=== PATIENT | female | born 1990 | race Caucasian/White ===

== ENCOUNTER → 2016-12-31 | Outpatient (CLI) | payer OTHER ==
--- NOTE | 2016-12-31 16:07 | DIAGNOSTIC IMAGING REPORT ---
CHEST CT WITHOUT CONTRAST CT DOSE: 495.52 mGy.cm HISTORY: Lung nodules R91.8 TECHNIQUE: Multiaxial CT images of the chest were performed without contrast. COMPARISON: 12/21/2015 FINDINGS: 5 mm nodular density left mid to lower lung. Several smaller lung nodules all which appear stable. No new or interval finding. There are no consolidative infiltrates. Several shotty Nodes considered benign. No significant hilar or mediastinal adenopathy. IMPRESSION: Unchanged study. Stable benign-appearing basilar nodularity. No interval or new interval or progressive process. Electronically signed by: Adrien Del Cid M.D. 12/31/2016 4:05 PM Dictated Date/Time: 12/31/2016 4:02 PM
== END | disposition home or self-care (01) ==
LOC: C.CTS 15:47
PROVIDERS: ATTEND Family Medicine
DX: R91.8 Other nonspecific abnormal finding of lung field (principal)

== ENCOUNTER 2024-08-26 08:35 | Inpatient (IN) ==
--- NOTE | 2024-08-26 08:53 | Emergency Department Note ---
History of Present Illness General Chief complaint: Facial Injury/Pain Stated complaint: L SIDED FACIAL SWELLING Time Seen by Provider: 08/26/24 08:44 History of Present Illness Maximum Pain Intensity: 5 This is a 34-year-old female that presents to the emergency department via private vehicle with complaints of "left-sided facial swelling". The patient began with this around 3 AM today when she awoke. She placed some ice on the area and noted worsening swelling around 8 AM therefore prompting arrival here today. No trauma. No injury. She points to the left upper dentition as a location of what is likely the origin noting an eroded tooth to the gumline with superior tracking edema. She notes it is now near the left eye. Minimal pain. No fevers, chills, nausea or vomiting. She denies any allergies. Otherwise healthy. No pertinent surgeries. Patient denies any chance of . No recent antibiotic use. No trouble breathing or swallowing. Home Medications Medication Instructions Recorded Confirmed Type buprenorphine 2 mg-naloxone 0.5 mg 1 tab sublingual BID 03/14/23 08/26/24 History sublingual tablet Allergies Allergy/AdvReac Type Severity Reaction Status Date / Time No Known Allergies Allergy Verified 08/26/24 11:17 Past Med/Surg History Problem List (Updated 08/26/24 @ 22:12 by Gil Lozano PA-C) Dental infection (Acute) Facial edema (Acute) Cellulitis of face (Acute) Cellulitis and abscess of face Periapical abscess of tooth with fistula Dental abscess Apical abscess Pelvic pain IUD strings lost IUD check up Encounter for IUD insertion Encounter for general counseling and advice on contraceptive management Encounter for annual routine gynecological examination Contusion, hip (Acute) Elbow contusion (Acute) Asthma (Chronic) Lower back pain (Acute) Anxiety Lumbar disc disease Depression Hypokalemia (Acute) Medical History No pertinent past medical history Surgical History No history of previous surgery Family History Mother Hypertension Father Hypertension Denies family history of Ovarian cancer Breast cancer Colorectal cancer Social History Smoking Status: Current every day smoker Tobacco Type: E-cigarettes / Vaping Age Quit Using Tobacco: 28; Second Hand Exposure: No; Do You Dip or Chew Tobacco: No; Tobacco Cessation Education Requested by Patient: No Hx Alcohol Use: No Hx Substance Use: No Preferred Language: Tamazight Communication Ability: Effective Retail Route Supervisor Required: No Beliefs That Will Affect Care: None Current Living Situation: Alone Other Information That Helps Us Care for You: No Feels Safe at Home: Yes Safety Concerns: Feels Safe At This Time Assistive Devices: None Review of Systems A total of 10 systems reviewed and were otherwise negative Physical Exam Vital Signs Vital Signs - 24 hr 08/26/24 08:41 08/26/24 10:05 Temperature 36.4 C L 36.8 C Temperature Source Skin Oral Pulse Rate 94 H Pulse Rate [Left Finger] 71 Pulse Rhythm [Left Finger] Regular Pulse Strength [Left Finger] Normal Respiratory Rate 20 18 Respiratory Effort / Characteristics Non-Labored Spontaneous Non-Labored Spontaneous Respiratory Depth Normal Normal Respiratory Pattern Regular Regular Blood Pressure 164/103 H Blood Pressure [Right Arm] 158/101 H Blood Pressure Mean 123 Blood Pressure Mean [Right Arm] 120 Blood Pressure Position [Right Arm] Sitting Pulse Oximetry 99 98 Oxygen Delivery Method Room Air Room Air Sepsis Recent Fever Within 48 Hours No Sepsis New/Unexplained Change in Mental Status N/A Sepsis Action Taken by Nursing No Action Required VITAL SIGNS - Vital signs and nursing notes were reviewed. Stable and afebrile. GENERAL - 34-year-old female appearing her stated age who is in no acute distress. Communicates well with provider and answers questions appropriately. SKIN -left-sided facial edema noted. HEAD - NC/AT. EYES - PERRL with EOMI bilaterally. EARS - No deformities of external structures noted on gross examination bilaterally. External auditory canals without discharge or otorrhea. Tympanic membranes pearly juarez without retraction or bulging. No fluid or purulent material visualized behind the TM. Handle of malleus, umbo, cone of light, pars tensa/flaccid all easily visualized. NOSE - Midline and without cyanosis. No epistaxis or purulent drainage noted. Septum midline without deviation or septal hematoma noted. MOUTH/OROPHARYNX - Without perioral cyanosis. Buccal mucosa pink and moist and without leukoplakia. Tongue midline with equal elevation of palate bilaterally. No tonsillar hypertrophy, erythema, or exudates noted. Left-sided facial edema. Overall fair dentition. Tooth #13 is with evidence of decay and erosion to the gumline NECK - Neck with FROM. Supple to palpation. L>R lymphadenopathy noted. No nuchal rigidity. LUNGS - Chest wall symmetric without accessory muscle use, intercostals retractions, or central cyanosis. Normal vesicular breath sounds CTA B/L. No wheezes, rales, or rhonchi appreciated. CARDIAC - RRR EXTREMITIES - No clubbing or peripheral cyanosis. +5/5 strength noted in UE/LE bilaterally. NEUROLOGIC - Cranial nerves II through XII grossly intact. PSYCH - A&Ox3 and cooperates fully with examiner. Pt is very pleasant and interacts well with examiner. Course Administered Medications Buprenorphine/Naloxone (Buprenorphine/Naloxone 2/0.5mg Tab) 1 tab SL BID [facility] Stop: 09/25/24 20:59 Last Admin: 08/26/24 21:32 Dose: 1 tab Documented By: BROOKLYN Piperacillin Sod/Tazobactam Sod (Zosyn) 4.5 gm in 100 mls @ 25 mls/hr IV Q8H [facility]; Protocol Stop: 09/05/24 18:59 Last Admin: 08/26/24 19:18 Dose: 25 mls/hr Documented By: BROOKLYN Lactated Ringer's (Lr) 1,000 mls @ 80 mls/hr IV .[id number] [facility] Stop: 09/25/24 13:51 Last Admin: 08/26/24 14:36 Dose: 80 mls/hr Documented By: NAZIA Ketorolac Tromethamine (Ketorolac Tromethamine 15 Mg/Ml Vial) 15 mg IV Q6H PRN PRN Reason: Pain Stop: 08/31/24 13:51 Last Admin: 08/26/24 20:18 Dose: 15 mg Documented By: Admin: 08/26/24 14:39 Dose: 15 mg Documented By: NAZIA Discontinued Medications Acetaminophen (Acetaminophen 500 Mg Tab) 500 mg PO NOW STA Stop: 08/26/24 11:02 Last Admin: 08/26/24 11:05 Dose: 500 mg Documented By: LATONIA Ampicillin Sodium/Sulbactam Sodium (Unasyn) 3,000 mg in 100 mls @ 200 mls/hr IV NOW STA Stop: 08/26/24 09:19 Last Infusion: 08/26/24 09:53 Dose: Infused Documented By: Admin: 08/26/24 09:23 Dose: 200 mls/hr Documented By: MILLY Piperacillin Sod/Tazobactam Sod (Zosyn) 4.5 gm in 100 mls @ 200 mls/hr IV ONE STA Stop: 08/26/24 14:24 Last Infusion: 08/26/24 16:09 Dose: Infused Documented By: Admin: 08/26/24 14:41 Dose: 200 mls/hr Documented By: NAZIA Ioversol (Optiray 320 100ml) 94 ml IV ONCE ONE Stop: 08/26/24 10:06 Last Admin: 08/26/24 10:05 Dose: 94 ml Documented By: NICOLE Medical Decision Making Laboratory Data 08/26/24 09:05 08/26/24 09:05 Lab Results 08/26/24 Range/Units 09:05 WBC 7.65 (4.8-10.8) K/ul RBC 4.44 (4.20-5.40) M/uL Hgb 13.0 (12.0-16.0) g/dl Hct 39.2 (37.0-47.0) % MCV 88.3 (80.0-100.0) fL MCH 29.3 (25.0-34.0) pg MCHC 33.2 (32.0-36.0) g/dL RDW Std Deviation 40.0 (36.4-46.3) fL RDW Coeff of Chin 12.4 (11.5-14.5) % Plt Count 268 (130-400) K/uL MPV 10.3 (9.4-12.4) fL Immature Gran % (Auto) 0.1 % Neut % (Auto) 63.5 % Lymph % (Auto) 25.8 % [place] % (Auto) 9.0 % Eos % (Auto) 1.2 % Baso % (Auto) 0.4 % Neut # (Auto) 4.86 (1.40-6.50) K/uL Lymph # (Auto) 1.97 (1.20-3.40) K/uL [place] # (Auto) 0.69 H (0.11-0.59) K/uL Eos # (Auto) 0.09 (0.00-0.50) K/uL Baso # (Auto) 0.03 (0.00-0.20) K/uL Immature Gran # (Auto) 0.01 (0.01-0.20) K/uL Sodium 137 (136-145) mmol/L Potassium 3.9 (3.5-5.1) mmol/L Chloride 104 (98-107) mmol/L Carbon Dioxide 28 (21-32) mmol/L Anion Gap 5 (3-11) BUN 15 (6-23) mg/dl Creatinine 0.76 (0.6-1.2) mg/dl Est Cr Clr Drug Dosing 119.9 ml/min eGFR 106.70 BUN/Creatinine Ratio 19.7 (10-20) Glucose 93 (70-99(Fasting)) mg/dl Calcium 9.2 (8.6-10.3) mg/dl Total Bilirubin 0.4 (0.2-1.0) mg/dl AST 21 (13-39) U/L ALT 22 (7-52) U/L Alkaline Phosphatase 52 (34-104) U/L Total Protein 7.0 (6.0-8.3) gm/dl Albumin 4.3 (3.4-5.0) gm/dl Globulin 2.7 (2.5-4.0) gm/dl Albumin/Globulin Ratio 1.6 (0.9-2) HCG, Qual Negative (Negative) Imaging Data Radiologist's Impression: Face CT 08/26/24 08:50 CT facial bones w con CLINICAL HISTORY: L sided facial edema, likely dental origin COMPARISON STUDY: No previous studies for comparison. TECHNIQUE: Axial images of the face were obtained following intravenous injection of 94 cc of Optiray 320 IV. Sagittal and coronal reconstructions were viewed. Automated exposure control was utilized for the study. A dose lowering technique was utilized adhering to the principles of ALARA. FINDINGS: Visualized portions of the intracranial contents are unremarkable. The mastoid air cells are clear. The sinuses are clear. Epiglottis is normal. The parotid and submandibular glands are normal. An enlarged left level 1 lymph node on image 218 of 245 measures 1.6 x 1.2 cm. Several additional prominent left- sided cervical lymph nodes are present. There is extensive left facial subcutaneous stranding. This is due to a periapical abscess of the left maxillary second premolar (ADA tooth #13). Associated dental caries are present. Several additional dental caries are noted. There is enhancement within the overlying soft tissues without rim-enhancing fluid collection to suggest abscess. No soft tissue gas is present. IMPRESSION: 1. Extensive left facial inflammation suggestive of cellulitis due to a periapical abscess of the left maxillary second premolar. Enhancement within the adjacent soft tissues without rim-enhancing fluid collection to suggest abscess. 2. Multiple dental caries and several absent teeth. 3. Mildly enlarged left-sided cervical lymph nodes which are likely reactive. ACT 112: Negative or not required by law. Electronically signed by: Yohan Paredes M.D. 08/26/2024 10:28 AM MDM Narrative Patient was seen and evaluated as above in room C01b. Review was performed of triage nursing notes and vital signs. Patient presents to us today for assessment of left-sided facial swelling. This appears to be of dental origin. No evidence of Jose's angina. No evidence of meningitis or encephalitis. IV access with established. Labs were drawn. IV Unasyn was ordered. Labs revealed no leukocytosis or concerning anemia. No emergent metabolic disturbance. hCG negative. CT scan face was obtained. Results as above. Left-sided facial cellulitis noted. This is quite extensive and seems to be rapidly progressing. Hospitalization is indicated at this time. IV antibiotics were ordered. Oral acetaminophen ordered for pain. Case discussed with the hospitalist service. Please refer to further documentation regarding her stay. GCS: 15 In the evaluation and treatment of this patient the following differential diagnoses were entertained: Jose's angina, cellulitis, meningitis, encephalitis, orbital cellulitis, periorbital cellulitis, among others Impression & Plan Cellulitis of face, Facial edema, Dental infection Discharge Plan Visit Data Chief Complaint: Facial Injury/Pain Stated Complaint: L SIDED FACIAL SWELLING ED Provider: Ashvin Espino ED Midlevel Provider: Gil Lozano Discharge Problem: Cellulitis of face, Facial edema, Dental infection Patient Disposition: Admitted As Inpatient Discharge Instructions Interventions: ED Discharge Assessment Last Done: 08/26/24 13:52
[2024-08-26] MEDS: AMPICILLIN/SULBACTAM SOD 3,000 MG/100 ML BAG IV STA (09:23)
[2024-08-26 09:36] LABS: Basophils # (auto) 0.03 K/uL (0.00-0.20); Basophils % (auto) 0.4 %; Eosinophils # (auto) 0.09 K/uL (0.00-0.50); Eosinophils % (auto) 1.2 %; Hematocrit (blood only) 39.2 % (37.0-47.0); Immature Granulocytes # (auto) 0.01 K/uL (0.01-0.20); Immature Granulocytes % (auto) 0.1 %; Lymphocytes # (auto) 1.97 K/uL (1.20-3.40); Lymphocytes % (auto) 25.8 %; Mean Corpuscular Hemoglobin 29.3 pg (25.0-34.0); Mean Corpuscular Hgb Conc 33.2 g/dL (32.0-36.0); Mean Corpuscular Volume 88.3 fL (80.0-100.0); Mean Platelet Volume 10.3 fL (9.4-12.4); Monocytes # (auto) 0.69 K/uL (0.11-0.59); Neutrophils # (auto) 4.86 K/uL (1.40-6.50); Neutrophils % (auto) 63.5 %; Platelet Count 268 K/uL (130-400); RDW Coefficient of Variation 12.4 % (11.5-14.5); Red Blood Count 4.44 M/uL (4.20-5.40); White Blood Count 7.65 K/ul (4.8-10.8)
[2024-08-26 09:51] LABS: Albumin Globulin Ratio 1.6 (0.9-2); Albumin Level 4.3 gm/dl (3.4-5.0); BUN Creatinine Ratio 19.7 (10-20); Bilirubin,Total 0.4 mg/dl (0.2-1.0); Calcium 9.2 mg/dl (8.6-10.3); Creatinine Clr Calc Pharmacy 119.9 ml/min; Globulin 2.7 gm/dl (2.5-4.0); Potassium 3.9 mmol/L (3.5-5.1); Pregnancy Test, Serum Negative (Negative)
[2024-08-26] MEDS: OPTIRAY 320 100ml IV ONE (10:05)
--- NOTE | 2024-08-26 10:30 | CT Scan Report ---
CT facial bones w con CLINICAL HISTORY: L sided facial edema, likely dental origin COMPARISON STUDY: No previous studies for comparison. TECHNIQUE: Axial images of the face were obtained following intravenous injection of 94 cc of Optiray 320 IV. Sagittal and coronal reconstructions were viewed. Automated exposure control was utilized fo r the study. A dose lowering technique was utilized adhering to the principles of ALARA. FINDINGS: Visualized portions of the intracranial contents are unremarkable. The mastoid air cells ar e clear. The sinuses are clear. Epiglottis is normal. The parotid and submandibular glands are normal . An enlarged left level 1 lymph node on image 218 of 245 measures 1.6 x 1.2 cm. Several additional p rominent left-sided cervical lymph nodes are present. There is extensive left facial subcutaneous str anding. This is due to a periapical abscess of the left maxillary second premolar (ADA tooth #13). As sociated dental caries are present. Several additional dental caries are noted. There is enhancement within the overlying soft tissues without rim-enhancing fluid collection to suggest abscess. No soft tissue gas is present. IMPRESSION: 1. Extensive left facial inflammation suggestive of cellulitis due to a periapical abscess of the lef t maxillary second premolar. Enhancement within the adjacent soft tissues without rim-enhancing fluid collection to suggest abscess. 2. Multiple dental caries and several absent teeth. 3. Mildly enlarged left-sided cervical lymph nodes which are likely reactive. ACT 112: Negative or not required by law. Electronically signed by: Yohan Paredes M.D. 08/26/2024 10:28 AM
[2024-08-26] MEDS: ACETAMINOPHEN 500 MG TAB PO STA (11:05)
--- NOTE | 2024-08-26 12:15 | History & Physical Report ---
Date of Service August 26, 2024 Assessment & Plan (1) Anxiety: (2) Depression: (3) Apical abscess: Plan Assessment and plan: Left facial cellulitis: L apical abscess: Oral surgeon consulted, blood cultures pending Received IV ampicillin in ED, continue IV Zosyn Pain management with Toradol Follow-up with dentist NIKKI after DC Hx opiate abuse Sober x 5 years, continue Suboxone twice daily Hx anxiety/depression: Has not been taking medications due to financial reasons Will need to discuss with case management for further resources A total of 45 minutes was spent on chart review/diagnostic testing review/facilitating plan of care/discussion with specialist Full code DVT prophylaxis: Lovenox History of Present Illness Chief Complaint: Left facial swelling Primary Care Provider: Stefani Andrade MD The patient is a 34-year-old female with a past medical history of opioid abusecurrently on daily Suboxone, sober x 5 years, anxiety/depressioncurrently not on medications over the past 2 months due to issues with insurance, who presents to the ED today on 08/26/2024 with complaints of left facial swelling that started today. Patient reports an ongoing issue with cavities in the left side of her mouth but denies any ongoing tooth pain. Reports not following with a dentist for several years due to issues with insurance. She denies any recent fever/chills/nausea/vomiting/diarrhea/chest pain/shortness of breath. She woke up with facial swelling this morning and came to the ER for evaluation. On arrival to the ED, labs are unremarkable Facial CT showed: 1. Extensive left facial inflammation suggestive of cellulitis due to a periapical abscess of the left maxillary second premolar. Enhancement within the adjacent soft tissues without rim-enhancing fluid collection to suggest abscess. 2. Multiple dental caries and several absent teeth. 3. Mildly enlarged left-sided cervical lymph nodes which are likely reactive. The patient was given IV ampicillin in the ED and will be admitted for further IV antibiotics Allergies Allergy/AdvReac Type Severity Reaction Status Date / Time No Known Allergies Allergy Verified 08/26/24 11:17 Home Medications Medication Instructions Recorded Confirmed Type buprenorphine 2 mg-naloxone 0.5 mg 1 tab sublingual BID 03/14/23 08/26/24 History sublingual tablet Past Med/Surg History Problem List (Updated 08/26/24 @ 22:12 by Gil Lozano PA-C) Dental infection (Acute) Facial edema (Acute) Cellulitis of face (Acute) Cellulitis and abscess of face Periapical abscess of tooth with fistula Dental abscess Apical abscess Pelvic pain IUD strings lost IUD check up Encounter for IUD insertion Encounter for general counseling and advice on contraceptive management Encounter for annual routine gynecological examination Contusion, hip (Acute) Elbow contusion (Acute) Asthma (Chronic) Lower back pain (Acute) Anxiety Lumbar disc disease Depression Hypokalemia (Acute) Medical History No pertinent past medical history Surgical History No history of previous surgery Family History Mother Hypertension Father Hypertension Denies family history of Ovarian cancer Breast cancer Colorectal cancer Social History Smoking Status: Current every day smoker Tobacco Type: E-cigarettes / Vaping Age Quit Using Tobacco: 28; Second Hand Exposure: No; Do You Dip or Chew Tobacco: No; Tobacco Cessation Education Requested by Patient: No Hx Alcohol Use: No Hx Substance Use: No Preferred Language: Luxembourgish Communication Ability: Effective Radio Frequency Technician Required: No Beliefs That Will Affect Care: None Current Living Situation: Alone Other Information That Helps Us Care for You: No Feels Safe at Home: Yes Safety Concerns: Feels Safe At This Time Assistive Devices: None Review of Systems Review of Systems: All systems reviewed & are unremarkable except as noted in HPI & below Physical Exam Constitutional: WD/WN, vitals as above ENMT: external ear and nose normal, oropharynx normal (Left-sided facial swelling extending up to the left eye, no S/S airway comp) Mouth: + dentition abnormality and + dental caries Cardiovascular: RRR, no murmur, no edema Gastrointestinal (Abdomen): normal bowel sounds, soft, nontender, no hepatosplenomegaly Musculoskeletal: no cyanosis or clubbing, extremities motor strength 5/5 Skin: no rashes, warm and dry Neurologic: patellar DTR's 2+ bilat, sensation intact Psychiatric: A+Ox3, euthymic affect Lymphatic: + cervical lymphadenopathy Results & Data Results & Data Vital Signs (Past 12 Hours) Vital Signs Temp Pulse Pulse Resp BP BP Pulse Ox 08/26/24 10: 36.8 C 71 18 158/101 H 98 08/26/24 08:41 36.4 C L 94 H 20 164/103 H 99 O2 Del Method 08/26/24 10:05 Room Air 08/26/24 08:41 Room Air Diagnostic Findings Laboratory Results WBC 7.65 K/ul (4.8-10.8) 08/26/24 09:05 RBC 4.44 M/uL (4.20-5.40) 08/26/24 09:05 Hgb 13.0 g/dl (12.0-16.0) 08/26/24 09:05 Hct 39.2 % (37.0-47.0) 08/26/24 09:05 MCV 88.3 fL (80.0-100.0) 08/26/24 09:05 MCH 29.3 pg (25.0-34.0) 08/26/24 09:05 MCHC 33.2 g/dL (32.0-36.0) 08/26/24 09:05 RDW Std Deviation 40.0 fL (36.4-46.3) 08/26/24 09:05 RDW Coeff of Chin 12.4 % (11.5-14.5) 08/26/24 09:05 Plt Count 268 K/uL (130-400) 08/26/24 09:05 MPV 10.3 fL (9.4-12.4) 08/26/24 09:05 Immature Gran % (Auto) 0.1 % 08/26/24 09:05 Neut % (Auto) 63.5 % 08/26/24 09:05 Lymph % (Auto) 25.8 % 08/26/24 09:05 [place] % (Auto) 9.0 % 08/26/24 09:05 Eos % (Auto) 1.2 % 08/26/24 09:05 Baso % (Auto) 0.4 % 08/26/24 09:05 Neut # (Auto) 4.86 K/uL (1.40-6.50) 08/26/24 09:05 Lymph # (Auto) 1.97 K/uL (1.20-3.40) 08/26/24 09:05 [place] # (Auto) 0.69 K/uL (0.11-0.59) H 08/26/24 09:05 Eos # (Auto) 0.09 K/uL (0.00-0.50) 08/26/24 09:05 Baso # (Auto) 0.03 K/uL (0.00-0.20) 08/26/24 09:05 Immature Gran # (Auto) 0.01 K/uL (0.01-0.20) 08/26/24 09:05 Sodium 137 mmol/L (136-145) 08/26/24 09:05 Potassium 3.9 mmol/L (3.5-5.1) 08/26/24 09:05 Chloride 104 mmol/L (98-107) 08/26/24 09:05 Carbon Dioxide 28 mmol/L (21-32) 08/26/24 09:05 Anion Gap 5 (3-11) 08/26/24 09:05 BUN 15 mg/dl (6-23) 08/26/24 09:05 Creatinine 0.76 mg/dl (0.6-1.2) 08/26/24 09:05 Est Cr Clr Drug Dosing 119.9 ml/min 08/26/24 09:05 eGFR 106.70 08/26/24 09:05 BUN/Creatinine Ratio 19.7 (10-20) 08/26/24 09:05 Glucose 93 mg/dl (70-99(Fasting)) 08/26/24 09:05 Calcium 9.2 mg/dl (8.6-10.3) 08/26/24 09:05 Total Bilirubin 0.4 mg/dl (0.2-1.0) 08/26/24 09:05 AST 21 U/L (13-39) 08/26/24 09:05 ALT 22 U/L (7-52) 08/26/24 09:05 Alkaline Phosphatase 52 U/L (34-104) 08/26/24 09:05 Total Protein 7.0 gm/dl (6.0-8.3) 08/26/24 09:05 Albumin 4.3 gm/dl (3.4-5.0) 08/26/24 09:05 Globulin 2.7 gm/dl (2.5-4.0) 08/26/24 09:05 Albumin/Globulin Ratio 1.6 (0.9-2) 08/26/24 09:05 HCG, Qual Negative (Negative) 08/26/24 09:[address] 08/26/24 08:50 CT facial bones w con CLINICAL HISTORY: L sided facial edema, likely dental origin COMPARISON STUDY: No previous studies for comparison. TECHNIQUE: Axial images of the face were obtained following intravenous injection of 94 cc of Optiray 320 IV. Sagittal and coronal reconstructions were viewed. Automated exposure control was utilized for the study. A dose lowering technique was utilized adhering to the principles of ALARA. FINDINGS: Visualized portions of the intracranial contents are unremarkable. The mastoid air cells are clear. The sinuses are clear. Epiglottis is normal. The parotid and submandibular glands are normal. An enlarged left level 1 lymph node on image 218 of 245 measures 1.6 x 1.2 cm. Several additional prominent left- sided cervical lymph nodes are present. There is extensive left facial subcutaneous stranding. This is due to a periapical abscess of the left maxillary second premolar (ADA tooth #13). Associated dental caries are present. Several additional dental caries are noted. There is enhancement within the overlying soft tissues without rim-enhancing fluid collection to suggest abscess. No soft tissue gas is present. IMPRESSION: 1. Extensive left facial inflammation suggestive of cellulitis due to a periapical abscess of the left maxillary second premolar. Enhancement within the adjacent soft tissues without rim-enhancing fluid collection to suggest abscess. 2. Multiple dental caries and several absent teeth. 3. Mildly enlarged left-sided cervical lymph nodes which are likely reactive. ACT 112: Negative or not required by law. Electronically signed by: Yohan Paredes M.D. 08/26/2024 10:28 AM Code Status & VTE Plan VTE Prophylaxis Plan VTE Prophylaxis will be ordered: No Supervising Physician Co-Signing Physician Notes Attending Addendum: Case reviewed with the advanced practitioner. I have personally performed a history and physical examination on the patient. I have reviewed the advanced practitioner's documentation on the date of service referenced in note, and I agree with, and take responsibility for the plan of care. please refer to her notes for full details patient seen and examined, records reviewed by myself as well on exam, patient seen resting in bed, not in distress left side of the face still painful no problems with swallowing, breathing no other symptoms VS noted and reviewed oriented x3, not in distress, speaks in sentences with no effort nor accessory muscle use face: moderate edema, mild edema L side of the face normal rate, regular rhythm, no murmurs clear breath sounds bilaterally non distended, soft, nontender no bipedal edema, erythema, warmth no neuro deficits all labs, imaging noted and reviewed ASSESSMENT AND PLAN> LEFT FACIAL CELLULITIS, PERIAPICAL ABSCESS ff up blood cultures for tooth extraction tomorrow by Dr. Colindres other diagnoses and plan of care as per advanced practitioner's notes Tiago Olsen MD
--- NOTE | 2024-08-26 12:47 | Oral/Maxillofacial Consult ---
Date of Consultation August 26, 2024 Assessment & Plan (1) Apical abscess: (2) Cellulitis and abscess of face: (3) Dental abscess: (4) Periapical abscess of tooth with fistula: History of Present Illness History of Present Illness Oral Maxillofacial Surgery Exam Present Complaint: Acute left periorbital and infraorbital swelling with mucobuccal infection. I have pain/swelling/drainage from my infected upper left teeth. Symptoms have been ongoing for a while with mild pain but intense pain and swelling started early this morning. Pain and left side facial swelling Oral Exam: Finding-- Acute left side left infraorbital and mucobuccal swelling, carious teeth,# 13 and # 1 and 29 with tender gingival tissue with deep pocket formation. Teeth are carious and fractured causing the acute facial left side infection with localized swelling in the mucobuccal area of upper right/lower right ,removal is clinical indicated. Imaging: CT facial bones w con CLINICAL HISTORY: L sided facial edema, likely dental origin COMPARISON STUDY: No previous studies for comparison. TECHNIQUE: Axial images of the face were obtained following intravenous injection of 94 cc of Optiray 320 IV. Sagittal and coronal reconstructions were viewed. Automated exposure control was utilized for the study. A dose lowering technique was utilized adhering to the principles of ALARA. FINDINGS: Visualized portions of the intracranial contents are unremarkable. The mastoid air cells are clear. The sinuses are clear. Epiglottis is normal. The parotid and submandibular glands are normal. An enlarged left level 1 lymph node on image 218 of 245 measures 1.6 x 1.2 cm. Several additional prominent left- sided cervical lymph nodes are present. There is extensive left facial subcutaneous stranding. This is due to a periapical abscess of the left maxillary second premolar (ADA tooth #13). Associated dental caries are present. Several additional dental caries are noted. There is enhancement within the overlying soft tissues without rim-enhancing fluid collection to suggest abscess. No soft tissue gas is present. IMPRESSION: 1. Extensive left facial inflammation suggestive of cellulitis due to a periapical abscess of the left maxillary second premolar. Enhancement within the adjacent soft tissues without rim-enhancing fluid collection to suggest abscess. 2. Multiple dental caries and several absent teeth. 3. Mildly enlarged left-sided cervical lymph nodes which are likely reactive. Soft tissue: The left cheek is swollen from a acutely abscessed # 13 . Localized inflammation # 1 and # 29 area The floor of the mouth, tongue, hard/soft palate, posterior pharyngeal area all with in normal limits, no pathology or abnormal findings noted. Oral Care: Overall oral care is fair Occlusion: Class I missing teeth TMJ exam: No pop, clicking, pain, good ROM, No history of TMJ injury or dysfunction Periodontal exam: Inflammatory gingival tissue with early evidence of periodontal pathology. Head/Neck exam: Neck is supple, FROM, Able to extend and flex neck w/o difficulty, no masses, no abnormalities, no airway issues Treatment Plan: IV antibiotics then plan I&D with extractions in OR Aug 27 in the AM Set up with general anesthesia in hospital tomorrow AM due to complexity of the procedure I reviewed the treatment plan and consent with the patient Understanding was expressed. Time was given for questions regarding the surgery, risks and post op care. Discussed alternative to treatment--procedure as planned, Do not do surgery The following teeth are decayed and fractured and removal is indicated NIKKI: I&D left side with removal of infected root # 13 Removal of # 1 and # 29 to tamara with the localized infection which is a risk of developing acute facial infection Risks discussed: Bleeding,Pain,swelling,infection, dry socket, delayed healing, nerve injury to face,lips,tongue,chin area which could be permanent (rare). TMJ, jaw stiffness, change in bite (rare), ear pain (referred). Sinus problems like fistula or infection. Need to leave a small root fragment in place to avoid injury to nerve or sinus. Relationship of teeth to nerve/sinus and risk of jaw fracture. Home care reviewed: Will need to establish with a local dentist for ongoing care tooth brushing, rinsing, follow up care with Dr Colindres. diet=[id number] dental. Discussed activity level, driving/work while on Rx pain Meds. Surgery to be set up with in tomorrow AM for I&D with =extraction of # 1,13 and 29 Allergies Allergy/AdvReac Type Severity Reaction Status Date / Time No Known Allergies Allergy Verified 08/26/24 11:17 Home Medications Medication Instructions Recorded Confirmed Type buprenorphine 2 mg-naloxone 0.5 mg 1 tab sublingual BID 03/14/23 08/26/24 H istory sublingual tablet Patient History Medical History No pertinent past medical history Surgical History No history of previous surgery Family History Mother Hypertension Father Hypertension Denies family history of Ovarian cancer Breast cancer Colorectal cancer Social History Smoking Status: Current every day smoker Tobacco Type: Cigarettes Age Quit Using Tobacco: 28; Cigarettes Per Day: pt was a social smoker; Do You Dip or Chew Tobacco: No; Hx Alcohol Use: Yes Hx Substance Use: No Preferred Language: Haitian Feels Safe at Home: Yes Results & Data Vital Signs (Past 12 Hours) Vital Signs Temp Pulse Pulse Resp BP BP Pulse Ox 08/26/24 10:05 36.8 C 71 18 158/101 H 98 08/26/24 08:41 36.4 C L 94 H 20 164/103 H 99 O2 Del Method 08/26/24 10:05 Room Air 08/26/24 08:41 Room Air PG Care Time/CCT Total # of Minutes Spent Total Time Spent with Patient: Total time spent is greater than 50% in coordination of care (as documented) at patient's floor/unit and/or counseling patient: Coding Level of Care Code 84085 OFFICE CONSULT LVL Diagnoses Apical abscess K04.7 Cellulitis and abscess of face L03.211; L02.01 Dental abscess K04.7 Periapical abscess of tooth with fistula K04.6
--- OUTSIDE RECORDS SUMMARY | 2024-08-26 13:39 | External Medical Summary | Summary of Care ---
Author Name Unknown Organization [facility] Address [address] [place] [address] Phone [phone] Care Team Providers Care System Support Administrator Name Role Phone Swapna Villalpando MD Primary Care Provid er Reason for Visit * Reason Comments eRx-Medication Refill Encounter Details Date Type Department Care Team (Late st Contact Info) Description 03/20/2024 Refill [facility] [address] [place] [address] Swapna Villalpando MD [address], [place] [id number] Anxiety Allergies No known active allergiesdocumented as of this encounter (statuses as of 03/22/2024) Medications Medication Sig Dispensed Refills Start Date End Date Status traZODone HCl 50 MG Oral Tablet (Desyrel) Take 1 Tablet by mouth at bedtime. 0 Active Buprenorphine HCl-Naloxone HCl 2-0.5 MG Sublingual Tablet Sublingual (Suboxone) place 2 tablets under the tongue and dissolve once daily 0 04/23/2022 Active Levonorgestrel 19.5 MG Intrauterine Intrauterine Device (Kyleena) Insert 1 Each into uterus. 0 Active Omeprazole 20 MG Oral Capsule Delayed Release (PriLOSEC) Take 1 Capsule by mouth in the morning. 1 hour before the first meal of the day. 90 Capsule 3 08/17/2023 Active methylPREDNISolon e 4 MG Oral Tablet Therapy Pack (Medrol Dosepack)Indicati ons:Lumbar radiculopathy,Bul ging lumbar disc follow package directions 21 Tablet 0 10/19/2023 Active Meloxicam 7.5 MG Oral Tablet (Mobic)Indication s:Lumbar radiculopathy,Bul ging lumbar disc,Sciatica of right side Take 1-2 tabs daily for pain. 60 Tablet 5 10/19/2023 Active Cyclobenzaprine HCl 10 MG Oral Tablet (Flexeril)Indicat ions:Lumbar radiculopathy,Bul ging lumbar disc,Sciatica of right side Take 1 Tablet by mouth 3 times a day as needed for Muscle spasms. 60 Tablet 3 10/19/2023 Active Lisinopril 5 MG Oral Tablet (Prinivil)Indicat ions:HTN, goal below 140/90 Take 1 Tablet by mouth daily. 90 Tablet 3 10/19/2023 Active Phentermine HCl 37.5 MG Oral CapsuleIndication s:Class 2 obesity with body mass index (BMI) of 35 to 39.9 without comorbidity Take 1 Capsule by mouth in the morning. Take for 12 weeks then stop for at least 1 month. Call for further refills.. 84 Capsule 0 10/19/2023 Active Citalopram Hydrobromide 40 MG Oral Tablet (CeleXA)Indicatio ns:Anxiety TAKE 1 TABLET BY MOUTH EVERY DAY IN THE MORNING 90 Tablet 1 03/22/2024 Active buPROPion HCl ER (XL) 150 MG Oral Tablet Extended Release 24 Hour (Wellbutrin XL)Indications:Ob esity, Class II, BMI 35-39.9, isolated (see actual BMI),Anxiety TAKE 2 TABLETS BY MOUTH EVERY MORNING 180 Tablet 1 09/07/2023 4 Discontinued Citalopram Hydrobromide 40 MG Oral Tablet (CeleXA)Indicatio ns:Anxiety Take 1 Tablet by mouth in the morning. 90 Tablet 1 09/07/2023 4 Discontinued documented as of this encounter (statuses as of 03/22/2024) Active Problems Problem Noted Date Diagnosed Date HTN, goal below 140/90 04/28/2023 Sciatica of right side 09/30/2022 Vapes nicotine containing substance 09/09/2022 Class 2 obesity with body ma ss index (BMI) of 35 to 39.9 without comorbidity 12/01/2017 Overview: bmi= 36.89 12/01/17 Sleep disturbance 12/01/2017 Encounter for monitoring Suboxone maintenance th freddypy 12/01/2017 Opioid dependence on mainten ance agonist therapy, no symptoms 12/01/2017 Anxiety Overview: psychiatry- [facility]- Dr Sylvester- poor response to buspar, on vistaril documented as of this encounter (statuses as of 03/22/2024) Immunizations Name Administration Dates Next Due DTaP Dipth/Tet/Acell Pertussis (Infanrix), Peds 08/07/1997,09/13/1993,1992,09/04,1992 HIB PRP-T, 4 dose (ActHib) 06/11/1993,1992 ,1992 HPV Vaccine, 4-Valent 02/23/2008,10/25/2007,01/2007 Hepatitis B, 0-19 yrs 04/30/1994,06/11/1993,02/21 MMR - Measles/Mumps/Rubella Vaccine 08/07/1997,0 06/11/1993 Meningococcal Conjugate Vacc ine (Menactra/Menveo) 08/25/2007 OPV - Polio Virus Vaccine (Oral) 997,09/13/1993,1992,05/23 Seasonal Influenza, Split, I IV3, No Preserve, Inj 08/31/2012 TDAP (age 10 and older)(Boostrix) 01/13/2022,01/2007 Varicella Vaccine (Chicken Pox) 08/25/2007,06/30 documented as of this encounter Social History Tobacco Use Types Packs/Day Years Used Date Smoking Tobacco: Some Days Cigarettes 0.1 9 Passive Smoke Exposure: Past Smokeless Tobacco: Never Comments:began at age 18 Alcohol Use Standard Drinks/Week Comments No 0 (1 standard drink = 0.6 oz pur e alcohol) none PHQ-2 Answer Date Recorded PHQ Adult Total Score 0 05/21/2022 Hunger Vital Sign Answer Date Recorded Within the past 12 months, y ou worried that your food would run out before you got the money to buy more. Never true 03/14/20 23 Within the past 12 months, t he food you bought just didn't last and you didn't have money to get more. Never true 03/14/2023 Sex and Gender Information Value Date Recorded Sex Assigned at Female 04/22/2022 5:12 PM EDT Gender Identity Female 04/22/2022 5:12 PM EDT Sexual Orientation Straight 04/22/2022 5: 12 PM EDT Job Start Date Occupation Industry Not on file Not on file Not on file documented as of this encounter Miscellaneous Notes * Telephone Encounter - Marlyn Lorenz RPh - 03/22/2024 7:53 AM EDTSigned Prescriptions: Disp Refills Citalopram Hydrobromide 40 MG Oral Tablet *90 Tab*1 Sig: TAKE 1 TABLET BY MOUTH EVERY DAY IN THE MORNINGAuthorizing Provider: SWAPNA VILLALPANDO User: MARLYN LORENZ documented in this encounter Plan of Treatment Health Maintenance Due Date Last Done Comments Pneumococcal Vaccine: Pediatrics (0 to 5 Years) and At-Risk Patients (6 to 64 Years) (1 of 2 - PCV) 1998 HIV Screening 2007 Hepatitis C Screening 2010 Pap Smear 01/21/2019 01/22/2016, 12/21/2014 Cervical Cancer Screening 2022 HPV/Co-Test 2022 Depression Screening 05/21/2023 05/21/2022, 12/01/19 18 COVID-19 Vaccine ( - 2022- season) 2023 GFR 05/06/2024 05/06/2023, 04/23/2022 Influenza Vaccine (FLU shot) (Season Ended) 2024 08/31/2012, 08/31/2012 Albumin/Creatinine Ratio 05/06/2026 05/06/2023 DTaP,Tdap,and Td Vaccines (9 - Td or Tdap) 01/13/2032 01/13/2022, 02/03/2019, 08/25/2007, Additional history exists Hepatitis B Completed 04/30/1994, 05/24, 1992 MENINGOCOCCAL (MENACTRA/MENVEO) Aged Out 08/25/2007, 08/25/2007 No longer eligibl e based on patient's age to complete this topic GARDASIL-HPV IMMUNIZATION SERIES Completed 02/23/2008, 10/25/2007, 08/25/2007 documented as of this encounter Medical Devices Not on filedocumented as of this encounter Visit Diagnoses Diagnosis Anxiety Anxiety state, unspecified documented in this encounter Care Teams System Support Administrator Relationship Specialty Start Date End Date Swapna Villalpando MD [address] [place] [address] PCP - General Family Medicine 12/09/21 documented as of this encounter
--- OUTSIDE RECORDS SUMMARY | 2024-08-26 13:39 | External Medical Summary | Summary of Care ---
Author Name Unknown Organization [facility] Address [address] [place] [address] Phone [phone] Care Team Providers Care Senior Linux Systems Engineer Name Role Phone Stefani Andrade MD Primary Care Provid er Reason for Visit * Reason Onset Date Comments Appointment 07/27/2024 Psychiatry refer ral Encounter Details Date Type Department Care Team ([facility] st Contact Info) Description 07/27/2024 Telephone [facility] [address] [place] [address] Stefani Andrade MD [address] [place] [address] Appointment (Psychiatry referral) Allergies No known active allergiesdocumented as of this encounter (statuses as of 07/29/2024) Medications Medication Sig Dispensed Refills Start Date End Date Status traZODone HCl 50 MG Oral Tablet (Desyrel) Take 1 Tablet by mouth at bedtime. Active Buprenorphine HCl-Naloxone HCl 2-0.5 MG Sublingual Tablet Sublingual (Suboxone) place 2 tablets under the tongue and dissolve once daily 04/23/2022 Active Levonorgestrel 19.5 MG Intrauterine Intrauterine Device (Kyleena) Insert 1 Each into uterus. Active methylPREDNISolone 4 MG Oral Tablet Therapy Pack (Medrol Dosepack)Indications :Lumbar radiculopathy,Bulgin g lumbar disc follow package directions 21 Tablet 10/19/2023 Active Meloxicam 7.5 MG Oral Tablet (Mobic)Indications:L umbar radiculopathy,Bulgin g lumbar disc,Sciatica of right side Take 1-2 tabs daily for pain. 60 Tablet 5 10/19/2023 Active Cyclobenzaprine HCl 10 MG Oral Tablet (Flexeril)Indication s:Lumbar radiculopathy,Bulgin g lumbar disc,Sciatica of right side Take 1 Tablet by mouth 3 times a day as needed for Muscle spasms. 60 Tablet 3 10/19/2023 Active Lisinopril 5 MG Oral Tablet (Prinivil)Indication s:HTN, goal below 140/90 Take 1 Tablet by mouth daily. 90 Tablet 3 10/19/2023 Active Phentermine HCl 37.5 MG Oral CapsuleIndications:C lass 2 obesity with body mass index (BMI) of 35 to 39.9 without comorbidity Take 1 Capsule by mouth in the morning. Take for 12 weeks then stop for at least 1 month. Call for further refills.. 84 Capsule 10/19/2023 Active Omeprazole 20 MG Oral Capsule Delayed Release (PriLOSEC) Take 1 Capsule by mouth in the morning. 1 hour before the first meal of the day. 30 Capsule 5 03/24/2024 Active buPROPion HCl ER (XL) 150 MG Oral Tablet Extended Release 24 Hour (Wellbutrin XL)Indications:Obesi ty, Class II, BMI 35-39.9, isolated (see actual BMI),Anxiety,Major depressive disorder with current active episode, unspecified depression episode severity, unspecified whether recurrent TAKE 2 TABLETS BY MOUTH EVERY MORNING 180 Tablet 1 07/27/2024 Active Citalopram Hydrobromide 40 MG Oral Tablet (CeleXA)Indications: Anxiety,Major depressive disorder with current active episode, unspecified depression episode severity, unspecified whether recurrent Take 1 Tablet by mouth in the morning. 90 Tablet 1 07/27/2024 Active Ziprasidone HCl 40 MG Oral Capsule (Geodon)Indications: Major depressive disorder with current active episode, unspecified depression episode severity, unspecified whether recurrent,Bipolar 2 disorder (HCC) Take 1 Capsule by mouth 2 times a day with morning and evening meals. 60 Capsule 1 07/27/2024 Active documented as of this encounter (statuses as of 07/29/2024) Active Problems Problem Noted Date Diagnosed Date Bipolar 2 disorder 07/27/2024 HTN, goal below 140/90 04/28/2023 Sciatica of right side 09/30/2022 Vapes nicotine containing substance 09/09/2022 Class 2 obesity with body ma ss index (BMI) of 35 to 39.9 without comorbidity 12/01/2017 Overview: bmi= 36.89 12/01/17 Sleep disturbance 12/01/2017 Encounter for monitoring Suboxone maintenance th erapy 12/01/2017 Opioid dependence on mainten ance agonist therapy, no symptoms 12/01/2017 Anxiety Overview: psychiatry- [facility]- Dr Sylvester- poor response to buspar, on vistaril documented as of this encounter (statuses as of 07/29/2024) Immunizations Name Administration Dates Next Due DTaP Dipth/Tet/Acell Pertussis (Infanrix), Peds 08/07/1997,09/13/1993,1992,09/04,1992 HIB PRP-T, 4 Dose, PF, IM (H iberix, ActHib) 06/11/1993,1992,1992 HPV Vaccine, 4-Valent 02/23/2008,10/25/2007,01/2007 Hepatitis B, 0-19 yrs 04/30/1994,06/11/1993,02/21 MMR - Measles/Mumps/Rubella Vaccine 08/07/1997,0 06/11/1993 Meningococcal Conjugate Vacc ine (Menactra/Menveo) 08/25/2007 OPV - Polio Virus Vaccine (Oral) 997,09/13/1993,1992,05/23 Seasonal Influenza, Trivalen t, (IIV3), PF, (Fluzone) 08/31/2012 TDAP (age 10 and older)(Boostrix) 01/13/2022,01/2007 [...] money to get more. Never true 03/14/2023 Utilities Answer Date Recorded Do you have trouble paying y our heating, water, or electric bill? (Adult - for ages 18 years and over) Not on file 05/10/2024 Is your family able to pay t he heat, water, or electric bill? (Household - for ages 0-17 years) Not on file 05/10/2024 Does your family have access to good internet? (Household - for ages 0-17 years) Not on file 05/10/2024 Social Connections Answer Date Recorded How often do you feel lonely or isolated from those around you? (Adult - for ages 18 years and over) Not on file 05/10/2024 Sex and Gender Information Value Date Recorded Sex Assigned at Female 04/22/2022 5:12 PM EDT Gender Identity Female 04/22/2022 5:12 PM EDT Sexual Orientation Straight 04/22/2022 5: 12 PM EDT Job Start Date Occupation Industry Not on file Not on file Not on file documented as of this encounter Miscellaneous Notes * Telephone Encounter - Isabelle Willard OSA - 07/29/2024 9:19 AM EDT LMOM. Letter sent. 07/29/2024 * Telephone Encounter - Isabelle Willard OSA - 07/27/2024 1:27 PM EDT LMOM to schedule Psychiatry referral. 07/27/2024 documented in this encounter Plan of Treatment Health Maintenance Due Date Last Done Comments Pneumococcal Vaccine: Pediatrics (0 to 5 Years) and At-Risk Patients (6 to 64 Years) (1 of 2 - PCV) 1998 HIV Screening 2007 Hepatitis C Screening 2010 Pap Smear 01/21/2019 01/22/2016, 12/21/2014 Cervical Cancer Screening 2022 HPV/Co-Test 2022 GFR 05/06/2024 05/06/2023, 04/23/2022 COVID-19 Vaccine ( season) 2024 Influenza Vaccine (FLU shot) (#1) 2024 08/31/2012, 08/31/2012 Albumin/Creatinine Ratio 05/06/2026 05/06/2023 DTap/Tdap Vaccines (9 - Td or Tdap) 01/13/2032 01/13/2022, 02/03/2019, 08/25/2007, Additional history exists Hepatitis B Vaccine Completed 04/30/1994, 06/11/1993, 1992 MENINGOCOCCAL (MENACTRA/MENVEO) Aged Out 08/25/2007, 08/25/2007 No longer eligibl e based on patient's age to complete this topic HPV (Gardasil) Vaccine Completed 8, 10/25/2007, 08/25/2007 documented as of this encounter Medical Devices Not on filedocumented as of this encounter Care Teams Senior Linux Systems Engineer Relationship Specialty Start Date End Date Stefani Andrade MD [address] [place] [address] PCP - General Family Medicine 12/09/21 documented as of this encounter
--- OUTSIDE RECORDS SUMMARY | 2024-08-26 13:39 | External Medical Summary | Summary of Care ---
Author Name Unknown Organization [facility] Address [address] [place] [address] Phone [phone] Care Team Providers Care Collections Manager Name Role Phone Stefani Andrade MD Primary Care Provid er Reason for Visit * Reason Onset Date Comments Appointment 07/27/2024 Psychiatry refer ral Encounter Details Date Type Department Care Team ([facility] st Contact Info) Description 07/27/2024 Telephone [facility] [address] [place] [address] Stefani Andrade MD [address] [place] [address] Appointment (Psychiatry referral) Allergies No known active allergiesdocumented as of this encounter (statuses as of 07/27/2024) Medications Medication Sig Dispensed Refills Start Date [...] as of this encounter (statuses as of 07/27/2024) Active Problems Problem Noted Date Diagnosed Date [...] as of this encounter (statuses as of 07/27/2024) Immunizations Name Administration Dates Next Due DTaP [...] 2022 Depression Screening 05/21/2023 05/21/2022, 12/01/19 18 GFR 05/06/2024 05/06/2023, 04/23/2022 COVID-19 Vaccine ( [...] filedocumented as of this encounter Care Teams Collections Manager Relationship Specialty Start Date End Date Stefani Andrade MD [address], [place] [phone] PCP - General Family Medicine 12/09/21 documented as of this encounter
--- OUTSIDE RECORDS SUMMARY | 2024-08-26 13:39 | External Medical Summary | Summary of Care ---
Author Name Unknown Organization [facility] Address [address] [place] [address] Phone [phone] Care Team Providers Care Stranner Name Role Phone Swapna Villalpando MD Primary Care Provid er Reason for Visit * Reason Onset Date Comments Medication Refill 03/22/2024 Encounter Details Date Type Department Care Team (Late st Contact Info) Description 03/22/2024 Refill [facility] [address] [place] [address] Swapna Villalpando MD [address] [place] [address] Allergies No known active allergiesdocumented as of this encounter (statuses as of 03/24/2024) Medications Medication Sig Dispensed Refills Start Date End Date Status traZODone HCl 50 MG Oral Tablet (Desyrel) Take 1 Tablet by mouth at bedtime. 0 Active Buprenorphine HCl-Naloxone HCl 2-0.5 MG Sublingual Tablet Sublingual (Suboxone) place 2 tablets under the tongue and dissolve once daily 0 04/23/2022 Active Levonorgestrel 19.5 MG Intrauterine Intrauterine Device (Kyleena) Insert 1 Each into uterus. 0 Active methylPREDNISolone 4 MG Oral Tablet Therapy Pack (Medrol Dosepack)Indicatio ns:Lumbar radiculopathy,Bulg ing lumbar disc follow package directions 21 Tablet 0 10/19/2023 Active Meloxicam 7.5 MG Oral Tablet (Mobic)Indications :Lumbar radiculopathy,Bulg ing lumbar disc,Sciatica of right side Take 1-2 tabs daily for pain. 60 Tablet 5 10/19/2023 Active Cyclobenzaprine HCl 10 MG Oral Tablet (Flexeril)Indicati ons:Lumbar radiculopathy,Bulg ing lumbar disc,Sciatica of right side Take 1 Tablet by mouth 3 times a day as needed for Muscle spasms. 60 Tablet 3 10/19/2023 Active Lisinopril 5 MG Oral Tablet (Prinivil)Indicati ons:HTN, goal below 140/90 Take 1 Tablet by mouth daily. 90 Tablet 3 10/19/2023 Active Phentermine HCl 37.5 MG Oral CapsuleIndications :Class 2 obesity with body mass index (BMI) of 35 to 39.9 without comorbidity Take 1 Capsule by mouth in the morning. Take for 12 weeks then stop for at least 1 month. Call for further refills.. 84 Capsule 0 10/19/2023 Active Citalopram Hydrobromide 40 MG Oral Tablet (CeleXA)Indication s:Anxiety TAKE 1 TABLET BY MOUTH EVERY DAY IN THE MORNING 90 Tablet 1 03/22/2024 Active buPROPion HCl ER (XL) 150 MG Oral Tablet Extended Release 24 Hour (Wellbutrin XL)Indications:Obe sity, Class II, BMI 35-39.9, isolated (see actual BMI),Anxiety TAKE 2 TABLETS BY MOUTH EVERY MORNING 180 Tablet 0 03/22/2024 Active Omeprazole 20 MG Oral Capsule Delayed Release (PriLOSEC) Take 1 Capsule by mouth in the morning. 1 hour before the first meal of the day. 30 Capsule 5 03/24/2024 Active Omeprazole 20 MG Oral Capsule Delayed Release (PriLOSEC) Take 1 Capsule by mouth in the morning. 1 hour before the first meal of the day. 90 Capsule 3 08/17/2023 4 Discontinue d(Refill) documented as of this encounter (statuses as of 03/24/2024) Active Problems Problem Noted Date Diagnosed Date HTN, goal below 140/90 04/28/2023 Sciatica of right side 09/30/2022 Vapes nicotine containing substance 09/09/2022 Class 2 obesity with body ma ss index (BMI) of 35 to 39.9 without comorbidity 12/01/2017 Overview: bmi= 36.89 1/9/18 Sleep disturbance 12/01/2017 Encounter for monitoring Suboxone maintenance th erapy 12/01/2017 Opioid dependence on mainten ance agonist therapy, no symptoms 12/01/2017 Anxiety Overview: psychiatry- [facility]- Dr Sylvester- poor response to buspar, on vistaril documented as of this encounter (statuses as of 03/24/2024) Immunizations Name Administration Dates Next Due DTaP [...] Telephone Encounter - Marlyn Lorenz RPh - 03/24/2024 6:11 AM EDTSigned Prescriptions: Disp Refills Omeprazole 20 MG Oral Capsule Delayed Rele*30 Cap*5 Sig: Take 1 Capsule by mouth in the morning. 1 hour before the first meal of the day.Authorizing Provider: SWAPNA VILLALPANDO User: MARLYN LORENZ documented [...] 05/21/2023 05/21/2022, 12/01/19 18 COVID-19 Vaccine ( season) 2023 GFR 05/06/2024 05/06/2023, 04/23/2022 Influenza [...] filedocumented as of this encounter Care Teams Stranner Relationship Specialty Start Date End Date Swapna Villalpando MD [address] [facility] [address] PCP - General Family Medicine 12/09/21 documented as of this encounter
--- OUTSIDE RECORDS SUMMARY | 2024-08-26 13:39 | External Medical Summary | Summary of Care ---
Author Name Unknown Organization [facility] Address [address] [place] [address] Phone [phone] Care Team Providers Care Sand Filler Name Role Phone Stefani Andrade MD Primary Care Provid er Reason for Visit * Reason Comments eRx-Medication Refill Encounter Details Date Type Department Care Team (Late st Contact Info) Description 03/20/[address] [facility] [address] [place] [address] Merlyn Espinal PA-C [address] [place] [address] Obesity, Class II, BMI 35-39.9, isolated (see actual BMI); Anxiety Allergies No known active allergiesdocumented as [...] EVERY MORNING 180 Tablet 0 03/22/2024 Active buPROPion HCl ER (XL) 150 MG Oral Tablet Extended Release 24 Hour (Wellbutrin XL)Indications:Ob esity, Class II, BMI 35-39.9, isolated (see actual BMI),Anxiety TAKE 2 TABLETS BY MOUTH EVERY MORNING 180 Tablet 1 09/07/2023 4 Discontinued documented as [...] encounter Miscellaneous Notes * Telephone Encounter - J Luis Hathaway RPh - 03/22/2024 7:56 AM EDT RX authorized. Zero refills given until upcoming labs needed 05/16. Thank you, J Luis Hathaway [facility] Clinical Pharmacist TelePharmacy 03/22/24 7:56 AM [phone] * Telephone Encounter - J Luis Hathaway RPh - 03/22/2024 7:56 AM EDTSigned Prescriptions: Disp Refills buPROPion HCl ER (XL) 150 MG Oral Tablet E*180 Ta*0 Sig: TAKE 2 TABLETS BY MOUTH EVERY MORNING Authorizing Provider: MERLYN ESPINAL User: J LUIS HATHAWAY documented in this encounter Plan of Treatment [...] as of this encounter Visit Diagnoses Diagnosis Obesity, Class II, BMI 35-39.9, isolated (see actual BMI) Morbid obesity Anxiety Anxiety state, unspecified documented in this encounter Care Teams Sand Filler Relationship Specialty Start Date End Date Stefani Andrade MD [address] [place] [address] PCP - General Family Medicine 12/09/21 documented as of this encounter
[2024-08-26] MEDS: LACTATED RINGER'S 1,000 ML IV SCH (14:36)
[2024-08-26] MEDS: KETOROLAC TROMETHAMINE 15 MG/ML VIAL IV PRN (14:39)
[2024-08-26] MEDS: PIPERACILLIN/TAZOBACTAM 4.5 GM/100 ML BAG IV STA (14:41)
[2024-08-26] MEDS: PIPERACILLIN/TAZOBACTAM 4.5 GM/100 ML BAG IV SCH (19:18)
[2024-08-26] MEDS: BUPRENORPHINE/NALOXONE 2/0.5MG TAB SL SCH (21:32)
[2024-08-27] MEDS: ACETAMINOPHEN 325 MG TAB PO PRN (00:27)
[2024-08-27] MEDS: KETOROLAC TROMETHAMINE 15 MG/ML VIAL IV ONE (00:50)
[2024-08-27] MEDS: SODIUM CHLORIDE 0.9% 1,000 ML IV ONE (03:52)
[2024-08-27] MEDS ORDERED: fentaNYL citrate PF 100 MCG/2 ML VIAL ONE (07:00)
[2024-08-27] MEDS ORDERED: LIDOCAINE 2% 2 ML VIAL/AMP(20MG/ML) INFIL ONE (07:00)
[2024-08-27] MEDS ORDERED: MIDAZOLAM HCL 1 MG/ML 2ML VIAL ONE (07:00)
[2024-08-27] MEDS ORDERED: ONDANSETRON INJ 2 MG/ML 2 ML VIAL ONE (07:00)
[2024-08-27] MEDS ORDERED: DEXAMETHASONE SOD INJ 4 MG/ML VIAL ONE (07:00)
[2024-08-27] MEDS ORDERED: ROCURONIUM BROMIDE 10 MG/ML 5 ML VIAL IV ONE (07:00)
[2024-08-27] MEDS ORDERED: SUCCINYLCHOLINE CHLORIDE 20 MG/ML 10 ML VIAL IV ONE (07:00)
[2024-08-27] MEDS ORDERED: PROPOFOL IV EMULSION 10 MG/ML 20 ML VIAL IV ONE (07:00)
[2024-08-27] MEDS ORDERED: DexMEDEtomidine HCL IV 100 MCG/ML VIAL IV ONE (07:08)
--- NOTE | 2024-08-27 07:14 | Anesthesiology Consultation ---
Date of Service August 27, 2024 Assessment & Plan Chart Review Chart Review: Acceptable Risk for Surgery and Patient NOT seen in Pre Admission Testing Consults Requested none ASA ASA2 Proposed Anesthesia Anesthesia Type: General History Surgery Operation Date: 08/27/24 07:30 Proposed Procedures p Incision and Drainage Left Maxilla - Ang Colindres, STARLA s Extraction #1, 13, 29 - Ang Radha Bernadine DMD Height/Weight Height: 5 ft 3 in Weight: 100 kg Allergies Allergy/AdvReac Type Severity Reaction Status Date / Time No Known Allergies Allergy Verified 08/26/24 11:17 Medications Home Medications Medication Instructions Recorded Confirmed Last Taken buprenorphine 2 mg-naloxone 0.5 mg 1 tab sublingual BID 03/14/23 08/26/24 03/13/23 sublingual tablet Active Medications Generic Name Dose Route Start Last Admin Trade Name Freq PRN Reason Stop Dose Admin Acetaminophen 650 mg 08/26/24 13:52 08/27/24 00:27 Acetaminophen 325 Mg Tab PO 09/25/24 13:51 650 mg Q4H PRN Administration mild pain Buprenorphine/Naloxone 1 tab 08/26/24 21:00 08/26/24 21:32 Buprenorphine/Naloxone 2/0.5mg Tab SL 09/25/24 20:59 1 tab BID OSIRIS Administration Piperacillin Sod/Tazobactam Sod 4.5 gm in 100 mls @ 25 mls/hr 08/26/24 19:00 08/27/24 03:52 Zosyn IV 09/05/24 18:59 25 mls/hr Q8H OSIRIS Administration Protocol Sodium Chloride 1,000 mls @ 80 mls/hr 08/27/24 03:37 08/27/24 03:52 Nss IV 08/27/24 16:06 80 mls/hr .[id number] ONE Administration Ketorolac Tromethamine 15 mg 08/26/24 13:52 08/27/24 06:04 Ketorolac Tromethamine 15 Mg/Ml Vial IV 08/31/24 13:51 15 mg Q6H PRN Administration Pain Past Medical History Medical History No pertinent past medical history morbid obesity vapes + tobacco Exercise / Class Metabolic Activity II 4-5 Yardwork/Stairs/Walk up hill Past Family History Family History Mother Hypertension Father Hypertension Denies family history of Ovarian cancer Breast cancer Colorectal cancer Past Surgical History Surgical History No history of previous surgery Past Anesthesia History No Hx of Anesthesia Complications and No Family Hx of Anesthesia Complications History of PONV No Hx of PONV and No Hx of Motion Sickness Social History Smoking Status: Current every day smoker tobacco type: cigarettes Do You Dip or Chew Tobacco: No Hx Alcohol Use: No Hx Substance Use: No substance use type: former substance user Physical Exam Vital Signs Last Vital Signs Temp 36.8 C 08/26/24 23:28 Pulse 92 H 08/26/24 23:28 Resp 18 08/26/24 23:28 BP 126/85 08/26/24 23:28 Pulse Ox 96 08/26/24 23:28 O2 Del Method Room Air 08/26/24 23:28 Testing Laboratory Results 08/26/24 09:05 08/26/24 09:05
--- NOTE | 2024-08-27 07:39 | History & Physical Bridge Note ---
Date of Service August 27, 2024 History & Physical Bridge Note I have examined the patient, reviewed the History & Physical and in the interval since the performance of the History & Physical I have noted the following changes of clinical significance: no changes noted. OK for the planned I&D left face
[2024-08-27] MEDS ORDERED: FLUMAZENIL 0.1 MG/1 ML 10 ML VIAL IV PRN (07:48)
[2024-08-27] MEDS ORDERED: ATROPINE SULFATE 0.1 MG/ML 10ML SYR IV PRN (07:48)
[2024-08-27] MEDS ORDERED: fentaNYL citrate PF 100 MCG/2 ML VIAL IV PRN (07:48)
[2024-08-27] MEDS ORDERED: ePHEDrine sulfate 50 MG/ML AMP IV PRN (07:48)
[2024-08-27] MEDS ORDERED: ONDANSETRON INJ 2 MG/ML 2 ML VIAL IV PRN (07:48)
[2024-08-27] MEDS ORDERED: PROMETHAZINE HCL 6.25 MG in SODIUM CHLORIDE 0.9% 50 ML IV PRN (07:48)
[2024-08-27] MEDS ORDERED: NALOXONE HCL 0.4 MG/1 ML VIAL/CARP IV PRN (07:48)
[2024-08-27 08:01] LABS: Basophils # (auto) 0.03 K/uL (0.00-0.20); Basophils % (auto) 0.4 %; Eosinophils # (auto) 0.11 K/uL (0.00-0.50); Eosinophils % (auto) 1.4 %; Hematocrit (blood only) 33.5 % (37.0-47.0); Hemoglobin 11.5 g/dl (12.0-16.0); Immature Granulocytes # (auto) 0.02 K/uL (0.01-0.20); Immature Granulocytes % (auto) 0.2 %; Lymphocytes % (auto) 27.2 %; Mean Corpuscular Hemoglobin 29.6 pg (25.0-34.0); Mean Corpuscular Hgb Conc 34.3 g/dL (32.0-36.0); Mean Corpuscular Volume 86.3 fL (80.0-100.0); Mean Platelet Volume 10.5 fL (9.4-12.4); Monocytes # (auto) 0.86 K/uL (0.11-0.59); Monocytes % (auto) 10.6 %; Neutrophils # (auto) 4.88 K/uL (1.40-6.50); Neutrophils % (auto) 60.2 %; Platelet Count 248 K/uL (130-400); RDW Coefficient of Variation 12.4 % (11.5-14.5); RDW Standard Deviation 39.3 fL (36.4-46.3); Red Blood Count 3.88 M/uL (4.20-5.40)
[2024-08-27] MEDS ORDERED: KETAMINE HCL 10MG/ML SYR ONE (08:05)
[2024-08-27] MEDS ORDERED: SUGAMMADEX SODIUM 200 MG/2 ML VIAL IV ONE (08:18)
[2024-08-27] MEDS: CHLORHEXIDINE GLUCONATE 0.12% 480 ML MT ONE (08:20)
[2024-08-27] MEDS: BUPIVACAINE/EPINEPHRINE 0.5% 1:200,000 1.8 ML CARP ONE (08:20)
[2024-08-27 08:45] LABS: Albumin Globulin Ratio 1.6 (0.9-2); BUN Creatinine Ratio 13.6 (10-20); Bilirubin,Total 0.9 mg/dl (0.2-1.0); Calcium 8.9 mg/dl (8.6-10.3); Creatinine Clr Calc Pharmacy 103.5 ml/min; Globulin 2.5 gm/dl (2.5-4.0); Potassium 4.2 mmol/L (3.5-5.1); Total Protein 6.5 gm/dl (6.0-8.3)
--- NOTE | 2024-08-27 08:54 | Operative Report ---
PG Post Operative Report Pre & Post Diagnosis Operation Date: 08/27/24 07:30 Pre-Op Diagnosis: Facial abscess left Post-Op Diagnosis: Facial abscess left I identified the patient and participated in the time-out.: Yes Procedure Operation Date: 08/27/24 07:30 Actual Procedures p Incision and Drainage Left Maxilla(Left) - Ang Colinrdes DMD s Extraction #1, 13, 29(Left) - Ang Colindres DMD Surgeon Ang Colindres DMD Cobbler Upper none Estimated Blood Loss 3 Findings Consistent with Post-Op Diagnosis acute facial abscess extending to left infraorbital rim and lower eye lid fractured # 13 localized subperiosteal abscess associated with area # 1 and 29 Specimens I&D left infraorbital and vestibular area Drains 1/4 inch [place] Anesthesia Type General Complications none Disposition Accompanied Patient To Recovery: Yes Description of Procedure Actual Procedures p Incision and Drainage left infraorbital and mucobuccal fold (left) Abscess; Removal of Teeth # 1,13,29 (root) (Not Applicable) - Ang Colindres DMD L03.211 M27.2 K12.2 CPT 77288 D7210 x 3 (#1, 13 and 29) Once cleared for surgery general anesthesia was achieved, the eyes were protected by the anesthesia dept criteria. A time out was take for patient ID, antibiotics, equipment and position verification once all agreed the procedure began. Local anesthesia using Marcaine with a vasoconstrictor ( 1.8 ml per site) given into each site. A throat pack was placed after the oral cavity was irrigated with saline. Once a surgical level of anesthesia was obtained and the local anesthesia was given time for the blocks the surgery was started. I turned my attention to the infection which was located in left infraorbital and mucobuccal fold and in addition to area #1(upper right) and lower right (area 29). Incision and Drainage CPT 44500 and D7210 (# 13) Using a 15 blade an incision was made lateral to the alveolar ridge and medial to the cheek upper left mucobuccal fold. Once the incision was made a lot of pus extruded from the site. This drainage was cultured for anaerobic and aerobic bacteria. A curved hemostat was carefully placed into the infected space along the lateral side of the upper jaw and into the infraorbital space along the lateral nose to the base of the infraorbital rim. Some further drainage was now allowed to escape. I now extracted the infected retained # 13 root, the root was removed with a 301 elevator and dental forceps, there was a large amount of granulation tissue on the apex and some more pus that was expressed I now palpated the cheek and no further drainage was expressed. The area was irrigated with at least 100 ml of NS solution. The socket was curetted and a 1/4 in Marcus drain was placed into the area for dependent drainage. It was sutured into place with a 3-0 Vicryl. I now turned my attention to the right side to remove the # 1 and 29 teeth. Upper # 1 and Lower # 29 (D7210 x 2) The full thick Muco-periosteal flap was made on the facial aspect of # 1 and 29 . The flap was reflected to expose the bone adjacent to teeth # 1 and 29. The rogues was used to remove bone, the tooth was removed with a 301 elevator, there was a large amount of granulation tissue on the apex of both teeth that was curetted. I inspected the sites to insure all bleeding was controlled. I removed the throat pack and suctioned the throat. I passed an OG tube to decompress the stomach. Bilateral gauze pressure dressings were placed. All instrument and sponge count was correct. The patient was allowed to awake from the anesthesia. Once full awake the anesthesia tube was removed and the patient was taken to the recovery room with all vital sign stable. The patient tolerated the surgery very well. I will follow the patient in my office, Rx and instructions will be given upon discharge. I attest to the content of the Intraoperative Record and any orders documented therein. Any exceptions are noted below.
--- NOTE | 2024-08-27 09:47 | Anesthesiology Progress Note ---
Date of Service August 27, 2024 Anesthesia Post Procedure Vital Signs Vital Signs: Temp Pulse Pulse Resp BP BP Pulse Ox 08/27/24 09:25 70 12 138/76 96 08/27/24 09:15 36.8 C 85 14 138/79 97 08/27/24 09:05 78 13 133/81 100 08/27/24 08:55 83 12 132/82 100 08/27/24 08:49 36 C L 97 H 13 126/85 100 08/26/24 23:28 36.8 C 92 H 18 126/85 96 08/26/24 21:35 93 H 18 133/78 99 08/26/24 20:22 77 18 142/95 H 100 08/26/24 16:01 85 18 143/91 H 97 08/26/24 10:05 36.8 C 71 18 158/101 H 98 O2 Del Method O2 Flow Rate 08/27/24 09:25 Room Air 08/27/24 09:15 Room Air 08/27/24 09:05 Oxymask 2 08/27/24 08:55 Oxymask 4 08/27/24 08:49 Oxymask 6 08/26/24 23:28 Room Air 08/26/24 21:35 Room Air 08/26/24 20:22 Room Air 08/26/24 16:01 Room Air 08/26/24 10:05 Room Air Pain Intensity Left Face: Pain Intensity: 4 Face: Pain Intensity: 4 Transfer of Care Handoff Completed per policy Notes Mental Status: alert / awake / arousable Patient Amnestic to Procedure: Yes Nausea / Vomiting: adequately controlled Pain: adequately controlled Airway Patency, RR, SpO2: stable & adequate BP & HR: stable & adequate Hydration State: stable & adequate Anesthetic Complications: no major complications apparent
[2024-08-27] MEDS: ENOXAPARIN INJ 40 MG/0.4 ML SYR SQ SCH (10:08)
--- NOTE | 2024-08-27 15:35 | Hospitalist Progress Note ---
Date of Service August 27, 2024 Assessment & Plan (1) Anxiety: (2) Depression: (3) Apical abscess: Plan Assessment and plan: Left facial cellulitis: L apical abscess: Oral surgeon consulted, blood cultures pending Received IV ampicillin in ED, continue IV Zosyn Pain management with Toradol Follow-up with dentist NIKKI after DC - status post incision and drainage's left maxilla and extraction of #1, 13 and 29th tooth on the left She has been complaining of some pain but has been tolerating diet Continue current antibiotic and likely discharge tomorrow on oral antibiotic Hx opiate abuse Sober x 5 years, continue Suboxone twice daily Hx anxiety/depression: Has not been taking medications due to financial reasons Will need to discuss with case management for further resources Full code DVT prophylaxis: Lovenox Admission and Anticipated Discharge Date Admission Date: August 26, 2024 Subjective 08/27/2024 The patient was seen and examined in medical floor She is status post incision and drainage left maxilla and extraction of #1,13 and 29 tooth on the left complains numbness and pain but Review of Systems Review of Systems: all systems reviewed and are unremarkable except as noted below Physical Exam Physical Exam: lying in bed without any acute distress Constitutional: well developed, well nourished, + ill appearing and + obese Eyes: PERRL, conjunctivae normal, anicteric sclerae ENMT: external ear and nose normal, oropharynx normal Neck: trachea midline, no thyromegaly Respiratory: no respiratory distress Auscultation: lungs clear to auscultation bilaterally Cardiovascular: Rate/Rhythm: regular rate and regular rhythm; not tachycardic Heart Sounds: normal S1 and normal S2; no murmur Extremities: no edema Gastrointestinal (Abdomen): Inspection/Auscultation: normal bowel sounds; abdomen not distended Percussion/Palpation: abdomen soft; abdomen nontender Musculoskeletal: no acute arthritis involving any joint Neurologic: normal touch/pain/proprioception and moves all extremities; no focal motor deficits Psychiatric: A+Ox3, euthymic affect Lymphatic: no cervical or axillary lymphadenopathy Results & Data Results & Data Vital Signs (Past 12 Hours) Vital Signs Temp Pulse Pulse Resp BP Pulse Ox O2 Del Method 08/27/24 12:31 37.1 C 88 16 127/85 97 Room Air 08/27/24 11:41 37.1 C 79 17 130/87 95 Room Air 08/27/24 10:52 37.1 C 81 16 138/87 97 Room Air 08/27/24 10:09 36.3 C L 74 16 140/85 96 Room Air 08/27/24 09:35 36.7 C 91 H 14 123/86 94 Room Air 08/27/24 09:25 70 12 138/76 96 Room Air 08/27/24 09:15 36.8 C 85 14 138/79 97 Room Air 08/27/24 09:05 78 13 133/81 100 Oxymask 08/27/24 08:55 83 12 132/82 100 Oxymask 08/27/24 08:49 36 C L 97 H 13 126/85 100 Oxymask O2 Flow Rate 08/27/24 12:31 08/27/24 11:41 08/27/24 10:52 08/27/24 10:09 08/27/24 09:35 08/27/24 09:25 08/27/24 09:15 08/27/24 09:05 2 08/27/24 08:55 4 08/27/24 08:49 6 Laboratory Results Short CBC 08/27/24 Range/Units 06:51 WBC 8.10 (4.8-10.8) K/ul Hgb 11.5 L (12.0-16.0) g/dl Hct 33.5 L (37.0-47.0) % Plt Count 248 (130-400) K/uL BMP 08/27/24 06:51 Sodium 138 Potassium 4.2 Chloride 104 Carbon Dioxide 29 BUN 12 Creatinine 0.88 Glucose 93 Calcium 8.9 Liver Function 08/27/24 Range/Units 06:51 Total Bilirubin 0.9 D (0.2-1.0) mg/dl AST 18 (13-39) U/L ALT 18 (7-52) U/L Alkaline Phosphatase 50 (34-104) U/L Albumin 4.0 (3.4-5.0) gm/dl Medications Administered Current Inpatient Medications Acetaminophen (Acetaminophen 325 Mg Tab) 650 mg PO Q4H PRN PRN Reason: mild pain Stop: 09/25/24 13:51 Last Admin: 08/27/24 15:02 Dose: 650 mg Buprenorphine/Naloxone (Buprenorphine/Naloxone 2/0.5mg Tab) 1 tab SL BID OSIRIS Stop: 09/25/24 20:59 Last Admin: 08/27/24 10:28 Dose: Not Given Piperacillin Sod/Tazobactam Sod (Zosyn) 4.5 gm in 100 mls @ 25 mls/hr IV Q8H OSIRIS; Protocol Stop: 09/05/24 18:59 Last Infusion: 08/27/24 14:57 Dose: Infused Sodium Chloride (Nss) 1,000 mls @ 80 mls/hr IV .[id number] ONE Stop: 08/27/24 16:06 Last Infusion: 08/27/24 15:01 Dose: Infused Ketorolac Tromethamine (Ketorolac Tromethamine 15 Mg/Ml Vial) 15 mg IV Q6H PRN PRN Reason: Pain Stop: 08/31/24 13:51 Last Admin: 08/27/24 12:33 Dose: 15 mg Ondansetron HCl (Ondansetron Inj 2 Mg/Ml 2 Ml Vial) 4 mg IV ONCE PRN PRN Reason: PACU Use Only-Nausea/Vomiting Stop: 08/27/24 15:49
[2024-08-28 07:32] LABS: Basophils # (auto) 0.02 K/uL (0.00-0.20); Basophils % (auto) 0.2 %; Eosinophils # (auto) 0.02 K/uL (0.00-0.50); Eosinophils % (auto) 0.2 %; Hematocrit (blood only) 31.8 % (37.0-47.0); Immature Granulocytes # (auto) 0.05 K/uL (0.01-0.20); Immature Granulocytes % (auto) 0.4 %; Lymphocytes # (auto) 1.75 K/uL (1.20-3.40); Lymphocytes % (auto) 14.9 %; Mean Corpuscular Hemoglobin 30.1 pg (25.0-34.0); Mean Corpuscular Hgb Conc 34.6 g/dL (32.0-36.0); Mean Corpuscular Volume 86.9 fL (80.0-100.0); Mean Platelet Volume 10.7 fL (9.4-12.4); Monocytes # (auto) 0.73 K/uL (0.11-0.59); Monocytes % (auto) 6.2 %; Neutrophils # (auto) 9.21 K/uL (1.40-6.50); Neutrophils % (auto) 78.1 %; Platelet Count 267 K/uL (130-400); RDW Coefficient of Variation 12.3 % (11.5-14.5); RDW Standard Deviation 39.7 fL (36.4-46.3); Red Blood Count 3.66 M/uL (4.20-5.40); White Blood Count 11.78 K/ul (4.8-10.8)
[2024-08-28 07:51] LABS: BUN Creatinine Ratio 13.7 (10-20); Calcium 9.2 mg/dl (8.6-10.3); Creatinine Clr Calc Pharmacy 124.8 ml/min
[2024-08-28 07:53] VITALS: BP 120/77; PULSE 64; RESP 18; TEMP 97.7; O2SAT 98
--- NOTE | 2024-08-28 11:21 | Hospitalist Progress Note ---
Date of Service August 28, 2024 Assessment & Plan (1) Anxiety: (2) Depression: (3) Apical abscess: Plan Assessment and plan: Left facial cellulitis: L apical abscess: Oral surgeon consulted, blood cultures pending Received IV ampicillin in ED, continue IV Zosyn Pain management with Toradol Follow-up with dentist NIKKI after DC - status post incision and drainage's left maxilla and extraction of #1, 13 and 29th tooth on the left She has been complaining of some pain but has been tolerating diet Continue current antibiotic and likely discharge tomorrow on oral antibiotic -Her pain in the mouth this tolerable and she has been eating and drinking no rmally - she will be given oral Augmentin to finish a course of 10 days in total - discharged home this afternoon Hx opiate abuse Sober x 5 years, continue Suboxone twice daily Hx anxiety/depression: Has not been taking medications due to financial reasons Will need to discuss with case management for further resources Full code DVT prophylaxis: Lovenox Admission and Anticipated Discharge Date Admission Date: August 26, 2024 Subjective 08/27/2024 The patient was seen and examined in medical floor She is status post incision and drainage left maxilla and extraction of #1,13 and 29 tooth on the left Complains numbness and pain but 08/28/2024 The patient was seen and examined in medical floor She has minimal pain in the mouth but has been eating and drinking normally Denies any other significant symptoms and she is ready to be discharged Review of Systems Review of Systems: all systems reviewed and are unremarkable except as noted below Physical Exam Physical Exam: lying in bed without any acute distress Constitutional: well developed, well nourished, + ill appearing and + obese Eyes: PERRL, conjunctivae normal, anicteric sclerae ENMT: external ear and nose normal, oropharynx normal Neck: trachea midline, no thyromegaly Respiratory: no respiratory distress Auscultation: lungs clear to auscultation bilaterally Cardiovascular: Rate/Rhythm: regular rate and regular rhythm; not tachycardic Heart Sounds: normal S1 and normal S2; no murmur Extremities: no edema Gastrointestinal (Abdomen): Inspection/Auscultation: normal bowel sounds; abdomen not distended Percussion/Palpation: abdomen soft; abdomen nontender Musculoskeletal: minimal pain in the oral cavity Neurologic: normal touch/pain/proprioception and moves all extremities; no focal motor deficits Psychiatric: A+Ox3, euthymic affect Lymphatic: no cervical or axillary lymphadenopathy Results & Data Results & Data Vital Signs (Past 12 Hours) Vital Signs Temp Pulse Resp BP Pulse Ox O2 Del Method 08/28/24 07:52 36.5 C 64 18 120/77 98 Room Air 08/28/24 04:39 36.6 C 74 16 130/61 92 Room Air 08/28/24 00:25 36.8 C 80 16 128/80 96 Room Air Laboratory Results Short CBC 08/28/24 Range/Units 06:24 WBC 11.78 H (4.8-10.8) K/ul Hgb 11.0 L (12.0-16.0) g/dl Hct 31.8 L (37.0-47.0) % Plt Count 267 (130-400) K/uL BMP 08/28/24 06:24 Sodium 135 L Potassium 4.0 Chloride 103 Carbon Dioxide 27 BUN 10 Creatinine 0.73 Glucose 145 H Calcium 9.2 Medications Administered Current Inpatient Medications Acetaminophen (Acetaminophen 325 Mg Tab) 650 mg PO Q4H PRN PRN Reason: mild pain Stop: 09/25/24 13:51 Last Admin: 08/28/24 07:14 Dose: 650 mg Buprenorphine/Naloxone (Buprenorphine/Naloxone 2/0.5mg Tab) 1 tab SL BID OSIRIS Stop: 09/25/24 20:59 Last Admin: 08/28/24 09:05 Dose: 1 tab Piperacillin Sod/Tazobactam Sod (Zosyn) 4.5 gm in 100 mls @ 25 mls/hr IV Q8H [facility]; Protocol Stop: 09/05/24 18:59 Last Infusion: 08/28/24 06:42 Dose: Infused Ketorolac Tromethamine (Ketorolac Tromethamine 15 Mg/Ml Vial) 15 mg IV Q6H PRN PRN Reason: Pain Stop: 08/31/24 13:51 Last Admin: 08/28/24 09:06 Dose: 15 mg
--- NOTE | 2024-08-28 11:31 | Oral/Maxillofacial Progress Nt ---
Date of Service August 28, 2024 Assessment & Plan Admission and Anticipated Discharge Date Admission Date: August 26, 2024 Subjective Post Op infection evaluation 24 hours The infected area is resolving very well. Swelling is almost gone and the tissue is back to normal in size and texture. No further drainage is noted. Drain was removed today. Cultures were reviewed --I will Rx Augmentin for oral Meds Infection has responded very well to the antibiotics, extractions and the I and D. I requested that the patient continue with massage, heat and wound care. At this time the area is well healed and responded well to treatment, no further treatment needed. OK for discharge today RTC as needed. Results & Data Vital Signs (Past 12 Hours) Vital Signs Temp Pulse Resp BP Pulse Ox O2 Del Method 08/28/24 07:52 36.5 C 64 18 120/77 98 Room Air 08/28/24 04:39 36.6 C 74 16 130/61 92 Room Air 08/28/24 00:25 36.8 C 80 16 128/80 96 Room Air PG Care Time/CCT Total # of Minutes Spent Total Time Spent with Patient: Total time spent is greater than 50% in coordination of care (as documented) at patient's floor/unit and/or counseling patient: Coding Level of Care Code None
[2024-08-28] MEDS: AMOXICILLIN/CLAVULANATE 875 MG TAB PO ONE (12:01)
--- NOTE | 2024-08-29 09:30 | Coding Query ---
CODING QUERY To promote full compliance with coding requirements relating to patient care, provider participation is requested in all cases of information coder uncertainty. Please assist us with the question(s) below: Clinical Indicators: History and Physical: * Hx opiate abuse * Sober x 5 years, continue Suboxone twice daily * buprenorphine 2 mg-naloxone 0.5 mg; 1 tab sublinqual BID Coding Question(s): The medical record indicates the patient is on daily Suboxone. Are you able to further specify this as: ( ) Opioid dependence, uncomplicated ( ) Opioid use, uncomplicated ( X) Other (please specify) History of Opioid Use, currently maintained on Suboxone ( ) Unable to determine. Thank you Radha Mata Principal Diagnosis: "that condition established after study, to be chiefly responsible for occasioning the admission of the patient to the hospital for care." Co-Existing Principal Diagnosis: "when two or more diagnoses equally meet the criteria for principal diagnosis as determined by the circumstances of admission, diagnostic work up, and/or therapy provided, and the Alphabetic Index, Tabular List, or another coding guideline does not provide sequencing direction, any one of the diagnoses may be sequenced first." "When the physician has documented what appears to be a current diagnosis in the body of the record, but has not included the diagnosis in the final diagnostic statement, the physician should be asked whether the diagnosis should be added." ([facility] 2 QTR90. p3-4) DUANE
--- NOTE | 2024-08-29 23:19 | Discharge Summary ---
Date of Service August 29, 2024 Admission HPI Per Admitting Provider The patient is a 34-year-old female with a past medical history of opioid abusecurrently on daily Suboxone, sober x 5 years, anxiety/depressioncurrently not on medications over the past 2 months due to issues with insurance, who presents to the ED today on 08/26/2024 with complaints of left facial swelling that started today. Patient reports an ongoing issue with cavities in the left side of her mouth but denies any ongoing tooth pain. Reports not following with a dentist for several years due to issues with insurance. She denies any recent fever/chills/nausea/vomiting/diarrhea/chest pain/shortness of breath. She woke up with facial swelling this morning and came to the ER for evaluation. On arrival to the ED, labs are unremarkable Facial CT showed: 1. Extensive left facial inflammation suggestive of cellulitis due to a periapical abscess of the left maxillary second premolar. Enhancement within the adjacent soft tissues without rim-enhancing fluid collection to suggest abscess. 2. Multiple dental caries and several absent teeth. 3. Mildly enlarged left-sided cervical lymph nodes which are likely reactive. The patient was given IV ampicillin in the ED and will be admitted for further IV antibiotics Admission Exam Per Admitting Provider Constitutional: WD/WN, vitals as above ENMT: external ear and nose normal, oropharynx normal (Left-sided facial swelling extending up to the left eye, no S/S airway comp) Mouth: + dentition abnormality and + dental caries Cardiovascular: RRR, no murmur, no edema Gastrointestinal (Abdomen): normal bowel sounds, soft, nontender, no hepatosplenomegaly Musculoskeletal: no cyanosis or clubbing, extremities motor strength 5/5 Skin: no rashes, warm and dry Neurologic: patellar DTR's 2+ bilat, sensation intact Psychiatric: A+Ox3, euthymic affect Lymphatic: + cervical lymphadenopathy Principal Diagnosis left apical dental abscess, status post incision and drainage's left maxilla and extraction of 1, 13 and 29th tooth on the left, left facial cellulitis Discharge Exam lying in bed without any acute distress Constitutional well developed, well nourished, + ill appearing and + obese Eyes PERRL, conjunctivae normal, anicteric sclerae ENMT external ear and nose normal, oropharynx normal Neck trachea midline, no thyromegaly Respiratory no respiratory distress Auscultation: lungs clear to auscultation bilaterally Cardiovascular Rate/Rhythm: regular rate and regular rhythm; not tachycardic Heart Sounds: normal S1 and normal S2; no murmur Extremities: no edema Gastrointestinal (Abdomen) Inspection/Auscultation: normal bowel sounds; abdomen not distended Percussion/Palpation: abdomen soft; abdomen nontender Neurologic normal touch/pain/proprioception and moves all extremities; no focal motor deficits Psychiatric A+Ox3, euthymic affect Lymphatic no cervical or axillary lymphadenopathy Discharge Data Allergies Allergy/AdvReac Type Severity Reaction Status Date / Time No Known Allergies Allergy Verified 08/26/24 11:17 Consultations 08/26/24 11:18 ED Decision to Admit Stat 08/26/24 13:52 Consult Oromaxillofacial Surgery Routine Procedures Performed Operation Date: 08/27/24 07:30 Actual Procedures p Incision and Drainage Left Maxilla(Left) - Ang Colindres DMD s Extraction #1, 13, 29(Left) - Ang Colindres DMD Ordered Studies 08/26/24 08:50 CT facial bones w con Stat Hospital Course (1) Anxiety: (2) Depression: (3) Apical abscess: Plan Assessment and plan: Left facial cellulitis: L apical abscess: Oral surgeon consulted, blood cultures pending Received IV ampicillin in ED, continue IV Zosyn Pain management with Toradol Follow-up with dentist NIKKI after DC - status post incision and drainage's left maxilla and extraction of #1, 13 and 29th tooth on the left She has been complaining of some pain but has been tolerating diet Continue current antibiotic and likely discharge tomorrow on oral antibiotic -Her pain in the mouth this tolerable and she has been eating and drinking normally - she will be given oral Augmentin to finish a course of 10 days in total - discharged home this afternoon Hx opiate abuse Sober x 5 years, continue Suboxone twice daily Hx anxiety/depression: Has not been taking medications due to financial reasons Will need to discuss with case management for further resources Full code DVT prophylaxis: Lovenox Total Time Total Time Spent Total Time Spent (In Minutes): 40 mionutes Discharge Plan Discharge Items Patient Disposition: Home - Self-Care Reason For Visit: L DENTAL ABSCESS Discharge Diagnosis: left apical dental abscess, status post incision and drainage's left maxilla and extraction of 1, 13 and 29th tooth on the left, left facial cellulitis Condition on Discharge: Good Activity: Resume your previous activity Lifting: Gradually increase as tolerated Bathing: No limitations Exercise/Sports: Gradually increase as tolerated Driving/Machine Use: Resume 1 day after discharge Non-emergency contact: Primary Care Provider and Surgeon Call non-emergency contact if: you have any medication questions, your symptoms worsen, your temperature is above 101.5, your wound has increased redness, your wound has increased drainage and your wound pain has increased Follow-up/Referrals: Ang Colindres DMD [Physician] - Stefani Andrade MD [Primary Care Provider] - ( your doctor's office will give you a call on Thursday with an appointment within 7 days) Diet: Regular Addtl Attending Provider Instructions: Please finish the course of antibiotic as advised You can take some probiotics [id number] as long as you are on antibiotic Please keep appointment with the healthcare providers Addtl Property Appraiser Provider Instructions: Dental care as below as recommended by Dr. Colindres: Will need to establish with a local dentist for ongoing care Tooth brushing, rinsing, follow up care with Dr Colindres. Diet=[id number] dental. ADDITIONAL ACTIVITY RECOMMENDATIONS: * [place] teeth after every meal. It is very important to keep your mouth clean to prevent infection. * Starting tonight rinse with the Peridex as directed then 2 x a day * it is very important to keep well hydrated, this prevents fever and possible dry socket pain SPECIAL CARE INSTRUCTIONS: *It is not uncommon that between day 2-4 that your swelling will be at its worst this is very normal, do not be alarmed. * Keep ice on the side of your face for the next 24 to 36 hours. This will help keep the swelling down. * Some swelling is common. It should gradually decrease within 4-5 days. * A certain amount of bleeding is to be expected. It is often possible to control mild oozing by placing folded gauze over the area and biting down for 30 minutes. If you are unable to control excessive bleeding, * You may experience some discomfort for a few days. If pain or swelling increases, Call Dr Colindres * Return to the office for a follow up check up on: * office address--[address] . phone # [phone] Pending Studies at Discharge: No Stand-Alone Forms: [facility], Work/School Release, Smoking Cessation Medications and DC Order Prescriptions: New amoxicillin 875 mg tablet 875 mg PO BID Qty: 10 0RF Continued buprenorphine-naloxone 2-0.5 mg tablet, sublingual 1 tab SUBLINGUAL BID Discharge Orders: Discharge Order (Routine); Ordered 08/28/24 Ordered By: Howard Britton Admission Data Admit Date/Time: 08/26/24 11:15 Attending Provider: Howard Britton Admit Provider: Tiago Olsen Primary Care Provider: Stefani Andrade Other Providers: Ang Colindres Robin A. Other Interventions: Discharge Summary Assessment (RN) Last Done: 08/28/24 11:38
== END 2024-08-28 12:10 | disposition home or self-care (01) | DRG 158 ==
LOC: ED 08:35 → SUATTDRO 11:15 → EDINP 11:15 → 3N 22:43